=== PATIENT | female | born 1990 | race American Indian/Alaskan Native ===

== ENCOUNTER 2020-10-26 18:29 | Outpatient (CLI) | payer OTHER ==
[2020-10-26] MEDS ORDERED: LACTATED RINGERS 500 ML IV ONE (19:25)
[2020-10-26 21:36] LABS: Bilirubin,Urine NEG (Negative); Blood,Urine NEG (Negative); Color,Urine Yellow (Yellow); Protein,Urine <15 mg/dL mg/dL (Negative); Urobilinogen,Urine < 2.0 mg/dL (<2.0); WBC,Urine < 1.0 /HPF (0.0-6.0)
[2020-10-26 21:44] VITALS: BP 103/59
== END 2020-10-26 22:08 | disposition home or self-care (01) ==
LOC: TRG 18:29 → APU 18:31 → TRG 22:08
PROVIDERS: ATTEND Obstetrics & Gynecology
DX: O36.8130 Decreased fetal movements, third trimester, not applicable or unspecified (principal); Z3A.32 32 weeks gestation of pregnancy
CPT/HCPCS: 59025; 81001